=== PATIENT | male | born 1960 | race Caucasian/White ===

== ENCOUNTER 2023-10-13 10:51 | Inpatient (IN) | payer MEDICAID, OTHER ==
[~2023-10-13] VITALS: Ht 167.6 cm; Wt 60.0 kg
[~2023-10-13 10:51] MED LIST: CHLO25CA6 PO; METH10 PO; OMEP20 PO
[2023-10-13] MEDS: SODIUM CHLORIDE 0.9% 2,000 ML IV ONE (11:24)
[2023-10-13] MEDS: LORazepam 2 MG/ML VIAL IVP ONE ×2 (11:24→21:54)
[2023-10-13] MEDS: ONDANSETRON HCL 4 MG/2 ML VIAL IVP ONE (11:25)
[2023-10-13 11:50] LABS: BASOPHILS % (AUTO) 0.7 % (0.0-2.0); EOSINOPHILS % (AUTO) 3.5 % (1.0-6.0); HEMATOCRIT 38.8 % (41-53); HEMOGLOBIN 13.5 g/dL (13.5-17.5); LYMPHOCYTES # (AUTO) 1.2 K/uL (1.0-4.8); LYMPHOCYTES % (AUTO) 20.2 % (22.0-44.0); MEAN CORPUSCULAR HGB CONC 34.8 G/dL (31.0-37.0); MEAN CORPUSCULAR VOLUME 86 fL (80-100); MONOCYTES # (AUTO) 0.6 K/uL (0.1-1.0); NEUTROPHILS # (AUTO) 3.9 K/uL (1.8-7.7); NEUTROPHILS % (AUTO) 65.6 % (40.0-70.0); PLATELET COUNT (AUTO) 187 K/uL (150-450); RED BLOOD CELL COUNT(AUTO) 4.51 MIL/uL (4.50-5.90); RED CELL DISTRIBUTION WIDTH 13.6 % (11.5-14.5)
[2023-10-13 11:58] LABS: ALCOHOL, BLOOD (SERUM) < 3 mg/dL (0-10)
[2023-10-13 12:03] LABS: LACTIC ACID 0.8 mmol/L (0.4-2.0); TROPONIN I-HIGH SENSITIVITY 6 ng/L (<76)
[2023-10-13 12:05] LABS: ANION GAP 8 mmol/L (8-16); CALCIUM, TOTAL 9.7 mg/dL (8.8-10.5); CARBON DIOXIDE 27 mmol/L (22-29); CHLORIDE 98 mmol/L (98-107); CREATININE 0.83 mg/dL (0.60-1.30); GLOMERULAR FILTR. RATE CALC > 60 mL/min (>60); GLUCOSE,RANDOM 100 mg/dL (70-110); POTASSIUM 3.6 mmol/L (3.5-5.1); SODIUM SERUM 133 mmol/L (136-145); UREA NITROGEN, BLOOD 16 mg/dL (7-18)
[2023-10-13] MEDS ORDERED: DiphenhydrAMINE HCL 50 MG/ML VIAL ONE (12:16)
[2023-10-13] MEDS ORDERED: HALOPERIDOL LACTATE 5 MG/ML VIAL ONE (12:16)
[2023-10-13] MEDS: HALOPERIDOL LACTATE 5 MG/ML VIAL IM ONE ×2 (12:19→21:30)
[2023-10-13] MEDS: DiphenhydrAMINE HCL 50 MG/ML VIAL IM ONE (12:20)
[2023-10-13 12:24] LABS: ALANINE AMINOTRANSFERASE 24 U/L (12-78); ALBUMIN 3.8 g/dL (3.4-5.0); ALKALINE PHOSPHATASE 99 U/L (46-116); ASPARTATE AMINOTRANSFERASE 39 U/L (15-37); CREATINE KINASE, TOTAL ONLY 156 U/L (39-308); LIPASE 47 U/L (16-77); TOTAL PROTEIN, SERUM 8.5 g/dL (6.4-8.2)
[2023-10-13] MEDS: MIDAZOLAM HCL 5 MG/ML VIAL IVP ONE (13:11)
[2023-10-13 14:12] LABS: APPEARANCE,URINE CLEAR (CLEAR); BILIRUBIN,URINE NEGATIVE (NEGATIVE); COLOR,URINE YELLOW (YELLOW); GLUCOSE, URINE (UA) NEGATIVE (NEGATIVE); KETONES,URINE NEGATIVE (NEGATIVE); LEUKOCYTE ESTERASE ,URINE NEGATIVE (NEGATIVE); NITRATE,URINE NEGATIVE (NEGATIVE); OCCULT BLOOD,URINE NEGATIVE (NEGATIVE); PROTEIN,URINE 30-70 mg/dL (NEGATIVE); SPECIFIC GRAVITIY, URINE 1.027 (1.003-1.030); UROBILINOGEN,URINE <=1.0 mg/dL (<=1.0)
[2023-10-13] MEDS: MAGNESIUM SULFATE 2 GM, MVI, ADULT NO.1 WITH VIT K 10 ML, THIAMINE 100 MG, FOLIC ACID 1... IV SCH (14:15)
[2023-10-13] MEDS ORDERED: LOPERAMIDE HCL 2 MG CAPSULE PO PRN (14:15)
[2023-10-13] MEDS ORDERED: DICYCLOMINE HCL 10 MG CAPSULE PO PRN (14:15)
[2023-10-13] MEDS: LORazepam 2 MG/ML VIAL IVP PRN (14:26)
[2023-10-13] MEDS: METOCLOPRAMIDE HCL 5 MG/ML 2 ML VIAL IVP PRN (14:26)
[2023-10-13 14:38] LABS: ALCOHOL, URINE DRUG SCREEN NEGATIVE (NEGATIVE); AMPHET/METH SCREEN,URINE POSITIVE (NEGATIVE); BARBITURATE SCREEN, URINE NEGATIVE (NEGATIVE); BENZODIAZEPINES SCREEN,URINE NEGATIVE (NEGATIVE); CANNABINOID SCREEN,URINE POSITIVE (NEGATIVE); COCAINE SCREEN,URINE NEGATIVE (NEGATIVE); METHADONE SCREEN, URINE NEGATIVE (NEGATIVE); OPIATE SCREEN,URINE NEGATIVE (NEGATIVE); PHENCYCLIDINE SCREEN,URINE NEGATIVE (NEGATIVE)
[2023-10-13 15:22] LABS: BACTERIA,URINE None Seen /HPF (None Seen); RBC,URINE None Seen /HPF (0-2); WBC,URINE None Seen /HPF (0-5)
[2023-10-13] MEDS: VANCOMYCIN 1GM/WATER(PEG/NADA) 200 ML IV ONE (15:46)
[2023-10-13 17:57] VITALS: BP 140/82; PULSE 67; RESP 18; TEMP 98.5
[2023-10-13 19:34] VITALS: BP 160/88; PULSE 87; RESP 19; TEMP 98.6
[2023-10-13] MEDS: TEMAZEPAM 15 MG CAPSULE PO SCH (21:00)
[2023-10-13] MEDS: DiphenhydrAMINE HCL 50 MG/ML VIAL IVP ONE (21:54)
[2023-10-14] VITALS (7 sets, daily range): BP systolic 153–170; BP diastolic 72–99; PULSE 57–103; RESP 18–20; TEMP 98.3–99.4
[2023-10-14] MEDS: HydrALAZINE HCL 20 MG/ML VIAL IVP ONE (04:37)
[2023-10-14 06:50] LABS: BASOPHILS % (AUTO) 0.1 % (0.0-2.0); EOSINOPHILS % (AUTO) 0 % (1.0-6.0); HEMATOCRIT 42.4 % (41-53); HEMOGLOBIN 14.4 g/dL (13.5-17.5); LYMPHOCYTES # (AUTO) 0.8 K/uL (1.0-4.8); LYMPHOCYTES % (AUTO) 9.2 % (22.0-44.0); MEAN CORPUSCULAR HEMOGLOBIN 29.6 pg (26.0-34.0); MEAN CORPUSCULAR VOLUME 87 fL (80-100); MONOCYTES # (AUTO) 0.5 K/uL (0.1-1.0); MONOCYTES % (AUTO) 6.1 % (2.0-9.0); NEUTROPHILS # (AUTO) 7.1 K/uL (1.8-7.7); NEUTROPHILS % (AUTO) 84.6 % (40.0-70.0); PLATELET COUNT (AUTO) 208 K/uL (150-450); RED BLOOD CELL COUNT(AUTO) 4.86 MIL/uL (4.50-5.90); RED CELL DISTRIBUTION WIDTH 13.6 % (11.5-14.5); WHITE BLOOD COUNT (AUTO) 8.4 K/uL (4.5-11.0)
[2023-10-14 07:08] LABS: CHLORIDE 103 mmol/L (98-107); SODIUM SERUM 139 mmol/L (136-145)
[2023-10-14 07:15] LABS: ANION GAP 13 mmol/L (8-16); CARBON DIOXIDE 23 mmol/L (22-29); GLUCOSE,RANDOM 111 mg/dL (70-110); UREA NITROGEN, BLOOD 21 mg/dL (7-18)
[2023-10-14 07:16] LABS: CALCIUM, TOTAL 9.2 mg/dL (8.8-10.5); CREATININE 0.69 mg/dL (0.60-1.30); GLOMERULAR FILTR. RATE CALC > 60 mL/min (>60)
[2023-10-14] MEDS: VANCOMYCIN 1GM/WATER(PEG/NADA) 200 ML IV SCH (08:58)
[2023-10-14] MEDS ORDERED: POTASSIUM CHL 10 MEQ/WATER 50 ML IV PRN (10:00)
[2023-10-14] MEDS: AmLODIPine BESYLATE 5 MG TABLET PO SCH (12:15)
[2023-10-14] MEDS: POTASSIUM CHLORIDE 20 MEQ ER TABLET PO PRN (12:15)
[2023-10-14] MEDS: ACETAMINOPHEN 500 MG TABLET PO ONE (19:56)
[2023-10-14] MEDS ORDERED: SODIUM CHLORIDE 0.9% 250 ML IV ONE (19:57)
[2023-10-14] MEDS: LABETALOL HCL 5 MG/ML 20 ML VIAL IVP ONE (20:23)
[2023-10-15 03:08] VITALS: BP 155/86; PULSE 61; RESP 19; TEMP 98.1
[2023-10-15] MEDS: KETOROLAC TROMETHAMINE 15 MG/ML VIAL IVP ONE (04:20)
[2023-10-15 07:30] VITALS: BP 151/95; PULSE 94; RESP 18; TEMP 97.8
[2023-10-15 08:06] LABS: ANION GAP 11 mmol/L (8-16); CALCIUM, TOTAL 8.3 mg/dL (8.8-10.5); CARBON DIOXIDE 23 mmol/L (22-29); CHLORIDE 102 mmol/L (98-107); CREATININE 0.51 mg/dL (0.60-1.30); GLOMERULAR FILTR. RATE CALC > 60 mL/min (>60); GLUCOSE,RANDOM 102 mg/dL (70-110); POTASSIUM 3.1 mmol/L (3.5-5.1); SODIUM SERUM 135 mmol/L (136-145); UREA NITROGEN, BLOOD 16 mg/dL (7-18)
[2023-10-15 08:09] LABS: BASOPHILS % (AUTO) 0.1 % (0.0-2.0); EOSINOPHILS % (AUTO) 0.2 % (1.0-6.0); HEMATOCRIT 39.9 % (41-53); HEMOGLOBIN 14.1 g/dL (13.5-17.5); LYMPHOCYTES # (AUTO) 1.1 K/uL (1.0-4.8); MEAN CORPUSCULAR HEMOGLOBIN 30.4 pg (26.0-34.0); MEAN CORPUSCULAR HGB CONC 35.3 G/dL (31.0-37.0); MEAN CORPUSCULAR VOLUME 86 fL (80-100); MONOCYTES # (AUTO) 0.6 K/uL (0.1-1.0); MONOCYTES % (AUTO) 5.8 % (2.0-9.0); NEUTROPHILS # (AUTO) 9.1 K/uL (1.8-7.7); NEUTROPHILS % (AUTO) 83.9 % (40.0-70.0); PLATELET COUNT (AUTO) 218 K/uL (150-450); RED BLOOD CELL COUNT(AUTO) 4.63 MIL/uL (4.50-5.90); RED CELL DISTRIBUTION WIDTH 13.5 % (11.5-14.5); WHITE BLOOD COUNT (AUTO) 10.9 K/uL (4.5-11.0)
[2023-10-15 11:18] VITALS: BP 166/98; PULSE 80; RESP 18; TEMP 97.7
[2023-10-15 16:13] VITALS: BP 140/80; PULSE 91; RESP 20; TEMP 98.5
[2023-10-15] MEDS: VANCOMYCIN 1GM/WATER(PEG/NADA) 200 ML IV SCH (16:31)
[2023-10-15 19:30] VITALS: BP 139/92; PULSE 87; RESP 20; TEMP 98.3
[2023-10-15] MEDS ORDERED: SODIUM CHLORIDE 0.9% 250 ML IV ONE (22:48)
[2023-10-16] MEDS: HALOPERIDOL LACTATE 5 MG/ML VIAL IM ONE (00:27)
[2023-10-16 04:30] VITALS: BP 142/71; PULSE 92; RESP 20; TEMP 97.5
[2023-10-16 07:01] LABS: BASOPHILS % (AUTO) 0.3 % (0.0-2.0); EOSINOPHILS % (AUTO) 0.7 % (1.0-6.0); HEMATOCRIT 39.4 % (41-53); HEMOGLOBIN 13.8 g/dL (13.5-17.5); LYMPHOCYTES # (AUTO) 1.2 K/uL (1.0-4.8); LYMPHOCYTES % (AUTO) 12.7 % (22.0-44.0); MEAN CORPUSCULAR HEMOGLOBIN 30.2 pg (26.0-34.0); MEAN CORPUSCULAR HGB CONC 35.1 G/dL (31.0-37.0); MEAN CORPUSCULAR VOLUME 86 fL (80-100); MONOCYTES # (AUTO) 0.7 K/uL (0.1-1.0); MONOCYTES % (AUTO) 7.4 % (2.0-9.0); NEUTROPHILS # (AUTO) 7.2 K/uL (1.8-7.7); NEUTROPHILS % (AUTO) 78.9 % (40.0-70.0); PLATELET COUNT (AUTO) 182 K/uL (150-450); RED BLOOD CELL COUNT(AUTO) 4.58 MIL/uL (4.50-5.90); RED CELL DISTRIBUTION WIDTH 13.5 % (11.5-14.5); WHITE BLOOD COUNT (AUTO) 9.1 K/uL (4.5-11.0)
[2023-10-16 07:12] LABS: ANION GAP 7 mmol/L (8-16); CALCIUM, TOTAL 8.4 mg/dL (8.8-10.5); CARBON DIOXIDE 24 mmol/L (22-29); CHLORIDE 103 mmol/L (98-107); GLOMERULAR FILTR. RATE CALC > 60 mL/min (>60); GLUCOSE,RANDOM 100 mg/dL (70-110); POTASSIUM 3.6 mmol/L (3.5-5.1); SODIUM SERUM 134 mmol/L (136-145); UREA NITROGEN, BLOOD 12 mg/dL (7-18)
[2023-10-16 08:01] VITALS: BP 163/94; PULSE 105; RESP 19; TEMP 98.8
[2023-10-16] MEDS ORDERED: SODIUM CHLORIDE 0.9% 500 ML IV ONE (11:34)
[2023-10-16 16:00] VITALS: BP 148/82; PULSE 99; RESP 19; TEMP 98
== END 2023-10-16 20:45 | disposition left against medical advice (07) | DRG 812 ==
LOC: EMS 10:51 → EDH 14:10 → 5S 17:26 → 6S 10-15 15:40
PROVIDERS: ADMIT Internal Medicine; ATTEND Internal Medicine
DX: T40.411A Poisoning by fentanyl or fentanyl analogs, accidental (unintentional), initial encounter (principal); G92.8 Other toxic encephalopathy; F29 Unspecified psychosis not due to a substance or known physiological condition; K73.9 Chronic hepatitis, unspecified; L03.012 Cellulitis of left finger; G89.29 Other chronic pain; M54.9 Dorsalgia, unspecified; Z59.00 Homelessness unspecified; F11.10 Opioid abuse, uncomplicated; E87.6 Hypokalemia; I10 Essential (primary) hypertension; R53.81 Other malaise; Z53.29 Procedure and treatment not carried out because of patient's decision for other reasons; Y92.89 Other specified places as the place of occurrence of the external cause
CPT/HCPCS: 70450; 80048; 80076; 80202; 80307; 81001; 82550; 83605; 83690; 84132; 84484; 85025; 92610; 93005; 99291; G0480; J0360; J1200; J1630; J1885; J2060; J2250; J2405; J2765; J3411; J3475; J3490; J7030; J7040; J7050